=== PATIENT | female | born 1970 | race African-American/Black ===

== ENCOUNTER 2023-03-16 18:39 | Emergency (ER) | payer BC ==
[2023-03-16] MEDS ORDERED: Ketorolac Tromethamine 30 MG/ML VIAL ONE (20:01)
[2023-03-16] MEDS ORDERED: HYDROcodone/Acetaminophen 5/325 mg Tablet ONE (20:02)
[2023-03-16 20:45] LABS: Bilirubin Neg (Negative); Blood, Urine 10 (Negative); Clarity Clear (Clear); Glucose, Urine (Dipstick) Normal (Negative); Ketone, Urine Negative (Negative); Leukocyte Negative (Negative); Nitrite Negative (Negative); Protein, Urine (Dipstick) 15 mg/dl (Neg-Trace); Urobilinogen Normal mg/dL (Less than 2)
[2023-03-16 20:57] LABS: CAUTI Indications for Culture Pelvic or flank pain; RBC/HPF 0-3 HPF (0-3); Squamous Epithelial 0-3 HPF (0-3); WBC/HPF 0-3 HPF (0-3)
[2023-03-16 20:58] LABS: Bacteria/HPF 2+ HPF (None Seen); Urine Culture Reflex No No
== END 2023-03-16 21:14 | disposition home or self-care (01) ==
LOC: CSHERS 18:39
DX: M54.9 Dorsalgia, unspecified (principal); N39.0 Urinary tract infection, site not specified
CPT/HCPCS: 72100; 81001; 96372; J1885

== ENCOUNTER 2024-06-04 21:01 | Emergency (ER) | payer BC | END 2024-06-04 22:05 | disposition home or self-care (01) | LOC: CSHERS 21:01 | DX: R03.0 Elevated blood-pressure reading, without diagnosis of hypertension (principal); Z55.6 Problems related to health literacy | CPT/HCPCS: 99283 ==